=== PATIENT | male | born 1975 | race Caucasian/White ===

== ENCOUNTER 2023-11-02 15:53 | Emergency (ER) | payer OTHER, SELFPAY ==
--- NOTE | 2023-11-02 16:08 | ED.URI ---
HPI - URI/Sore Throat General Chief Complaint: Upper Respiratory Infection Stated Complaint: throat discomfort Time Seen by Provider: 11/02/23 16:25 Source: patient and RN notes reviewed Mode of arrival: ambulatory Limitations: no limitations History of Present Illness HPI Narrative: 47-year-old male presents with concern for chronic sore throat. Reports 4 month history of sore throat, painful swallowing, painful talking. He reports his voice gets worse by the end of the day. He denies any nasal congestion, rhinorrhea, postnasal drainage, sneezing, coughing. Denies fever, body aches, chills, sweats. He denies difficulty swallowing. He denies drooling. He reports he takes ibuprofen daily, otherwise has not taken any medications for his sore throat. He does not have a primary care provider and has not been seen by a physician in more than 8 years. MD elicited complaint: sore throat Related Data Home Medications Medication Instructions Recorded Confirmed diclofenac sodium 75 mg mg PO 11/02/23 tablet,delayed release Allergies Allergy/AdvReac Type Severity Reaction Status Date / Time No Known Allergies Allergy Verified 11/02/23 16:09 Review of Systems Review of Systems: CONSTITUTIONAL: Denies malaise, chills, sweats, or fever. EYES: Denies visual changes, redness, or discharge. ENT: Denies rhinorrhea, congestion, sinus pain, otalgia, difficulty swallowing, drooling. Reports sore throat. CARDIOVASCULAR: Denies chest pain, palpitations, or edema. RESPIRATORY: Denies cough. Denies dyspnea. GASTROINTESTINAL: Denies abdominal pain, nausea, vomiting, diarrhea SKIN: Denies rash or itching. MUSCULOSKELETAL: Denies myalgia. NEUROLOGIC: Denies headache. All systems reviewed & are unremarkable except as noted in HPI and below PMFSH Comments At time of signature, agree with nursing past medical, surgical, social and family history. There is no relevant family history pertinent to the presenting complaint Exam Narrative: GENERAL: Well-appearing, well-nourished, and in no acute distress. HEAD: Normocephalic EYES: PERRLA, conjunctivae clear ENT: Nares clear, no discharge. Mucous membranes moist. TM pearly gamez with sharp light reflex bilaterally; no tragal tenderness. Oropharynx not erythematous without lesions. Tonsils not enlarged and without exudate, no drooling, no hoarseness, no trismus, uvula midline. Thyroid enlarged NECK: Supple. No lymphadenopathy CHEST: Clear to auscultation, breath sounds equal. No wheezing, rhonchi, rales, or stridor. No respiratory distress, speaks in full sentences. HEART: Regular rate and rhythm. No murmur heard. SKIN: Warm, dry, no rash. NEURO: Alert and oriented x3. PSYCH: Normal mood and affect Course Course Emergency Course: Patient was given referral to primary care also given resources for primary care for further evaluation. Patient does not appear to have seasonal or environmental allergies, however I will try antihistamines pending his appointment with a primary care provider to see if they help Patient is aware of, understands and agrees to treatment plan. Anticipatory guidance given. Patient agrees to follow-up as directed and is aware of reasons to seek care at the emergency department. Portions of this record may have been created with voice recognition software Level of Care: Express Care Visit Vital Signs Vital signs: Reviewed. MDM - URI/Sore Throat MDM Narrative Medical decision making narrative: Differential diagnosis considered: Deutsch virus, strep pharyngitis, allergic rhinitis, upper respiratory tract infection, sinusitis, rhinosinusitis, nasopharyngitis. viral pharyngitis, otitis media, otitis externa, pneumonia, bronchitis, viral cough syndrome, viral syndrome, and influenza. Exam findings show no acute concerns or changes; patient is non-toxic appearing and is in no distress. Patient is appropriate for outpatient treatment and follow-up. Lab Data At
[2023-11-02 16:09] VITALS: BP 154/89; PULSE 76; RESP 18; TEMP 36.1; O2SAT 100
== END 2023-11-02 16:44 | disposition home or self-care (01) ==
PROVIDERS: Emergency Provider Nurse Practitioner
DX: J31.2 Chronic pharyngitis (principal)
CPT/HCPCS: 87081; 87880; 99203; G0463

== ENCOUNTER 2024-04-04 17:10 | Outpatient (CLI) | payer OTHER, SELFPAY ==
--- NOTE | ~2024-04-04 | CT_ITS ---
EXAMINATION: CT soft tissue neck wo con DATE: 04/04/2024 17:40 INDICATION: TECHNIQUE: Computed tomography (CT) of the neck was performed with 75 mL Omnipaque-350 intravenous co ntrast. The dose-length product was 561.97 mGy-cm. COMPARISON: None FINDINGS: The thyroid gland is unremarkable. The submandibular and parotid glands are symmetric. There is n o cervical lymphadenopathy. There are no masses identified. The superior mediastinum is unremarka ble. The airway is unremarkable. Parapharyngeal and pre-glottic fat planes are preserved. The or bits are unremarkable. Mucosal thickening and aerated secretions in the left maxillary and sphenoid sinuses. Mild mucosal thickening in the right ethmoid and maxillary sinuses. The remaining aerated s paces are clear. Right pleural bleb. Dependent atelectasis. Uncomplicated appearing ACDF hardware. Cervical spondylosis. IMPRESSION: Left maxillary and sphenoid sinus findings may represent acute sinusitis in the appropriate clinical context. Otherwise unremarkable CT soft tissue neck findings. Reviewed, dictated and finalized at location [facility].
== END 2024-04-04 17:11 | disposition home or self-care (01) ==
PROVIDERS: PCP Family Medicine; Visit Provider Family Medicine
DX: R07.0 Pain in throat (principal)
CPT/HCPCS: 70490

== ENCOUNTER 2024-06-10 15:03 | Outpatient (CLI) | payer OTHER, SELFPAY ==
--- NOTE | ~2024-06-10 | MR_ITS ---
MRI of the cervical spine Clinical History: Spinal stenosis Technique: Axial T2-weighted and gradient images, and sagittal T1-weighted, T2-weighted, and STIR tayla ges were acquired. Findings: No acute fracture seen. There is 2-3 mm retrolisthesis of C4 over C5. There is anterior and interbody fusion from C5 to C7 with associated hardware and susceptibility artifact. No suspicious b one marrow signal abnormality seen. At C2-C3, there is no disc bulge or herniation. No spinal canal stenosis, cord compression, or neural foraminal narrowing. Probable minimal facet arthropathy. At C3-C4, there is minimal disc osteophyte complex. No teja canal stenosis or cord compression. Neur al foramina are preserved. At C4-C5, there is advanced degenerative disc narrowing. There is disc osteophyte complex with mild t o moderate canal stenosis and mild flattening of the ventral cord. There is bilateral neural foramina l narrowing, probably mild in degree. There is bilateral facet arthropathy. At C5-C6, and C6-C7, there is no definite disc bulge or herniation. No spinal canal stenosis or cord compression at these levels. No definite neural foraminal narrowing at these levels. No abnormal signal seen in the spinal cord. Paravertebral soft tissues are unremarkable aside from ar eas of susceptibility artifact. Impression: Moderate degenerative spondylosis at C4-C5, as detailed above, with associated 2-3 mm retrolisthesis at this level. Anterior and interbody fusion from C5 to C7. Reviewed, dictated and finalized at [facility]. Impression: Moderate degenerative spondylosis at C4-C5, as detailed above, with associated 2-3 mm retrolisthesis at this level. Anterior and interbody fusion from C5 to C7.
== END 2024-06-10 15:04 | disposition home or self-care (01) ==
PROVIDERS: PCP Family Medicine; Visit Provider Orthopaedic Surgery
DX: M48.02 Spinal stenosis, cervical region (principal); M43.12 Spondylolisthesis, cervical region; Z98.1 Arthrodesis status
CPT/HCPCS: 72141